=== PATIENT | male | born 1955 | race Caucasian/White ===

== ENCOUNTER → 2020-12-07 | Outpatient (CLI) | payer MEDICARE, OTHER | LOC: KOH-I 10:41 | DX: F17.210 Nicotine dependence, cigarettes, uncomplicated (principal); R91.1 Solitary pulmonary nodule | CPT/HCPCS: 71271 ==

== ENCOUNTER → 2021-01-06 | Outpatient (CLI) | payer MEDICARE, OTHER | LOC: HEART 5 15:24 | DX: R91.1 Solitary pulmonary nodule (principal) | CPT/HCPCS: 94010 ==

== ENCOUNTER → 2021-04-22 | Outpatient (CLI) | payer MEDICARE | LOC: KOH-I 04-08 13:00 | DX: R91.8 Other nonspecific abnormal finding of lung field (principal) | CPT/HCPCS: 71250 ==

== ENCOUNTER → 2021-10-18 | Outpatient (CLI) | payer MEDICARE, OTHER | LOC: KOH-I 12:51 | DX: R91.8 Other nonspecific abnormal finding of lung field (principal) | CPT/HCPCS: 71250 ==